=== PATIENT | male | born 1985 | race African-American/Black ===

== ENCOUNTER 2024-01-01 18:19 | Emergency (ER) | payer SELFPAY ==
[2024-01-01] VITALS (12 sets, daily range): BP systolic 160–189; BP diastolic 85–100; PULSE 86–98; RESP 13–18; TEMP 37.3; O2SAT 97–100; BMI 41.3
--- NOTE | 2024-01-01 18:37 | ED_ITS ---
HPI - Chest Pain General Chief Complaint: Chest Pain Stated Complaint: CHEST PAIN Time Seen by Provider: 01/01/24 18:27 History of Present Illness HPI narrative: 38-year-old male with reported history of sickle cell disease presents for sickle cell pain and chest pain. Patient states that he was in the area because his mother recently . He states that he is normally followed by Hematology at [facility] in [place]. He states that he usually takes hydroxyurea but since yesterday has had vomiting and has been unable to keep his medication down. Related Data Allergies Allergy/AdvReac Type Severity Reaction Status Date / Time metoclopramide [From Reglan] Allergy Hallucinati Verified 01/01/24 18:48 ng morphine Allergy Swelling Verified 01/01/24 18:48 of Lip/Tongue/Throat ondansetron [From Zofran] Allergy Swelling Verified 01/01/24 18:47 of Lip/Tongue/Throat Review of Systems Review of Systems Narrative: Negative except as noted above Patient History Social History Smoking Status: Never smoker Exam Initial Vital Signs Initial Vital Signs: Vital Signs Pulse Rate 98 H 01/01/24 18:31 Pulse Oximetry 100 01/01/24 18:31 Const: Awake, alert, no acute distress, obese Cardiac: regular rate, regular rhythm RESP: unlabored, clear bilaterally, no wheezing GI: Soft, nontender, nondistended, no rebound, no guarding MSK: Atraumatic, full range of motion, pulses equal Skin: Warm, Dry, intact, no rashes Neuro: AO x3, CN II-XII grossly intact, moves all extremities Course Orders Ordered: ED Orders 01/01/24 20:19 CBC Auto Diff [Complete Blood Count AUTO DIFF] Stat CMP [Comprehensive Metabolic Panel] Stat PT [Prothrombin Time INR] Stat RET [Reticulocyte Count, Percent] Stat Troponin & CK Cardiac Panel Stat Type and Screen Stat Discontinued Medications Diphenhydramine HCl (Diphenhydramine 50 Mg/Ml Vial) 50 mg IV NOW ONE Stop: 01/01/24 19:03 Last Admin: 01/01/24 20:22 Dose: 50 mg Documented By: SB Hydromorphone HCl (Hydromorphone 1 Mg Inj) 1 mg IV NOW ONE Stop: 01/01/24 18:36 Last Admin: 01/01/24 19:05 Dose: Not Given Documented By: SPF Hydromorphone HCl (Hydromorphone 1 Mg Inj) 2 mg IV NOW ONE Stop: 01/01/24 19:04 Last Admin: 01/01/24 20:22 Dose: 2 mg Documented By: PATT Hydromorphone HCl (Hydromorphone 1 Mg Inj) 2 mg IV NOW ONE Stop: 01/01/24 20:45 Last Admin: 01/01/24 20:46 Dose: 2 mg Documented By: PATT Hydromorphone HCl (Hydromorphone 1 Mg Inj) 2 mg IV NOW ONE Stop: 01/01/24 21:19 Last Admin: 01/01/24 21:24 Dose: 2 mg Documented By: PATT Acetaminophen (Ofirmev) 1,000 mg in 100 mls @ 400 mls/hr IV NOW ONE Stop: 01/01/24 18:49 Last Infusion: 01/01/24 20:50 Dose: Infused Documented By: Infusion: 01/01/24 20:23 Dose: 400 mls/hr Documented By: Infusion: 01/01/24 19:13 Dose: 0 mls/hr Documented By: Admin: 01/01/24 19:12 Dose: 400 mls/hr Documented By: SPF Sodium Chloride (Normal Saline 0.9%) 1,000 mls @ 1,000 mls/hr IV BOLUS ONE Stop: 01/01/24 19:36 Last Infusion: 01/01/24 21:17 Dose: Infused Documented By: Infusion: 01/01/24 20:23 Dose: 1,000 mls/hr Documented By: Infusion: 01/01/24 19:11 Dose: 0 mls/hr Documented By: Admin: 01/01/24 19:11 Dose: 1,000 mls/hr Documented By: SPF Ketorolac Tromethamine (Ketorolac 30 Mg/Ml Vial) 15 mg IV NOW ONE Stop: 01/01/24 18:36 Last Admin: 01/01/24 20:22 Dose: 15 mg Documented By: PATT Ondansetron HCl (Ondansetron 4 Mg/2 Ml Inj) 4 mg IV NOW ONE Stop: 01/01/24 18:36 Last Admin: 01/01/24 18:57 Dose: Not Given Documented By: RL Vital Signs Vital signs: Vital Signs - 8 hr 01/01/24 20:50 01/01/24 20:50 01/01/24 21:00 Pulse Rate 87 Respiratory Rate Blood Pressure 175/86 H 161/86 H Pulse Oximetry 97 Oxygen Delivery Method Room Air 01/01/24 21:00 01/01/24 21:30 01/01/24 21:30 Pulse Rate 89 92 H Respiratory Rate Blood Pressure 165/96 H Pulse Oximetry 99 Oxygen Delivery Method 01/01/24 22:00 01/01/24 22:30 01/01/24 22:30 Pulse Rate 95 H 95 H Respiratory Rate 16 15 Blood Pressure 184/100 H Pulse Oximetry 99 Oxygen Delivery Method MDM - Chest Pain Differential Diagnosis Differential diagnosis: Likely fracture of rib, pneumothorax and stable angina Lab Data 01/01/24 20:19 01/01/24 20:19 Labs: Lab Results 01/01/24 Range/Units 20:19 WBC 4.5 (4.5-11.0) X10^3/uL RBC 3.75 L (4.5-5.9) X10^6/uL Hgb 10.6 L (13.5-17.5) g/dL Hct 32.3 L (41-53) % MCV 86.1 (80-100) fL MCH 28.2 (26-34) PG MCHC 32.8 (30-36) % RDW 19.3 H (11.6-14.8) % Plt Count 196 (150-400) X10^3/uL Neut % (Auto) 65.4 (50-75) % Lymph % (Auto) 23.3 L (25-40) % [place] % (Auto) 9.5 (3-14) % Eos % (Auto) 1.0 L (2-4) % Baso % (Auto) 0.8 (0-2) % Neut # (Auto) 3000 (5567-0717) /uL Lymph # (Auto) 1100 (8204-4073) /uL [place] # (Auto) 400 (0-900) /uL Eos # (Auto) 0 (0-450) /uL Baso # (Auto) 0 (0-100) /uL Percent Retic 1.5 (0.9-2.6) % PT 12.2 (9.4-12.5) SECONDS INR 1.1 (0.9-1.3) Sodium 139 (137-145) mmol/L Potassium 3.8 (3.4-5.1) mmol/L Chloride 104 (98-107) mmol/L Carbon Dioxide 30 (22-32) mmol/L BUN 12 (9-20) mg/dL Creatinine 0.54 L (0.66-1.25) mg/dL Estimated GFR > 60 (>60) mL/min BUN/Creatinine Ratio 22.2 H (6-22) Glucose 157 H (70-100) mg/dL Calcium 9.2 (8.4-10.2) mg/dL Total Bilirubin 0.7 (0.2-1.3) mg/dL AST 61 H (17-59) IU/L ALT 50 H (<50) IU/L Alkaline Phosphatase 115 (38-126) U/L Total Creatine Kinase 898 H (55-170) U/L Troponin I < 0.012 (0.01-0.034) ng/mL Total Protein 7.9 (6.3-8.2) g/dL Albumin 3.8 (3.5-5.0) g/dL Globulin 4.1 (1.7-4.1) g/dL Albumin/Globulin Ratio 0.9 L (1.0-2.8) Blood Type A Positive Antibody Screen Negative Imaging Data Chest x-ray: Radiologist's Impression: PROCEDURE: XR CHEST 1V INDICATIONS: CHEST PAIN TECHNIQUE: One view of the chest was acquired. COMPARISON: None. FINDINGS: Surgical changes and devices: None. Lungs and pleura: Mild diffuse interstitial prominence with perihilar airway thickening. No focal consolidation. No pneumothorax or pleural effusion. Mediastinum: Mediastinal contours appear normal. Heart size is normal. Bones and chest wall: No suspicious bony lesions. Overlying soft tissues appear unremarkable. IMPRESSION: Mild diffuse interstitial prominence and perihilar airway thickening likely related to bronchitis either infectious or inflammatory in etiology. No focal consolidation. Otherwise, no acute cardiopulmonary abnormalities identified. Dictated by: Jesús Cuevas M.D. on 01/01/2024 at 18:03 Approved by: Jesús Cuevas M.D. on 01/01/2024 at 18:07 ECG Data Interpretation: Sinus tachycardia at 105 beats per minute. No ST T wave changes, normal axis, normal intervals MDM Narrative Medical decision making narrative: Patient reporting sickle cell crisis with pain and chest pain. EKG normal sinus rhythm. Reports stent placed at [facility] 1 year ago as well as longstanding history of sickle cell disease closely followed by their facility. Patient is stating that he normally gets 4 mg at a time of IV Dilaudid when he comes to the emergency department. He also states that his hematology team request that he be transfused if his hemoglobin is less than 10. Tylenol, Toradol, 2 mg of Dilaudid ordered for pain. Will add additional pain medications if needed, and will obtain records from [facility]. Patient is an extremely difficult IV access, he states that he had a port that was removed due to bacteremia and clotting off. Patient requested that a long- access IV be placed in his R IJ as this is what is typically done at [facility] when he has to have access. Chief Librarian Music Department so far unable to get records from [facility], records are pending. Laboratory work is reviewed. There was no elevation and reticulocyte count. Hemoglobin is 10.6. Troponin undetectable. Patient has requested additional pain medications. He received 3 total doses, however with normal laboratory results and still no records from [facility] will defer additional medications unless records from [facility] indicate othwerwise. Despite numerous efforts at obtaining medical records, there is no record of this patient at [facility]. I spoke directly with the hospital coordinator at [phone] who stated that she was on the phone with the patient earlier that day and he told her he was a [facility] patient and needed to have a doctor at [facility]. Coordinator told the patient that he would need to call to establish an appointment, but as of right now the patient is not and has not ever been in their system. Patient was advised of the phone calls made to [facility] as well as his normal reticulocyte count, hemoglobin, and troponin. Based on the inconsistencies in the patient's story as well as normal lab values and no record of establish care at a Heme-Onc Clinic I suspect the patient may be drug- seeking or malingering. He has received pain medications and does not appear to be in acute crisis at this time. Patient advised to follow up with Heme-Onc if he continues to experience his pain. Discharge Plan Departure Patient Disposition: Home Clinical Impression: Malingering, Sickle cell anemia with pain Instructions: Sickle Cell Disease Activity Restrictions/Additional Instructions: Follow with a heme-onc doctor Referrals: Fausto,MD Bismark [Primary Care Provider] - Stand Alone Forms: Patient Portal/API
[2024-01-01] MEDS: SODIUM CHLORIDE 0.9% 1,000 ML 1000 ML IV (19:11)
[2024-01-01] MEDS: ACETAMINOPHEN IV 1,000 MG/100 ML VIAL 400 MG IV (19:12)
--- NOTE | 2024-01-01 20:19 | PC.NURSE ---
MD Badillo placed IJ on right side.
[2024-01-01] MEDS: HYDROMORPHONE 1 MG INJ 2 MG IV ×3 (20:22→21:24)
[2024-01-01] MEDS: KETOROLAC 30 MG/ML VIAL 15 MG IV (20:22)
[2024-01-01] MEDS: diphenhydrAMINE 50 MG/ML VIAL IV (20:22)
[2024-01-01 20:37] LABS: Add Manual Diff / Slide Review NO; Basophils Absolute Auto 0 /uL (0-100); Basophils Percent Auto 0.8 % (0-2); Eosinophils Absolute Auto 0 /uL (0-450); Hematocrit 32.3 % (41-53); Hemoglobin 10.6 g/dL (13.5-17.5); Lymphocytes Absolute Auto 1100 /uL (1100-4500); Lymphocytes Percent Auto 23.3 % (25-40); Mean Corpuscular HGB Conc 32.8 % (30-36); Mean Corpuscular Hemoglobin 28.2 PG (26-34); Mean Corpuscular Volume 86.1 fL (80-100); Monocytes Absolute Auto 400 /uL (0-900); Monocytes Percent Auto 9.5 % (3-14); Neutrophils Absolute Auto 3000 /uL (1500-7000); Neutrophils Percent Auto 65.4 % (50-75); Platelet Count 196 X10^3/uL (150-400); Red Blood Cell Count 3.75 X10^6/uL (4.5-5.9); Red Cell Distribution Width 19.3 % (11.6-14.8); White Blood Cell Count 4.5 X10^3/uL (4.5-11.0)
[2024-01-01 20:40] LABS: INR 1.1 (0.9-1.3); Prothrombin Time 12.2 SECONDS (9.4-12.5)
[2024-01-01 20:45] LABS: Alanine Aminotransferase 50 IU/L (<50); Albumin 3.8 g/dL (3.5-5.0); Albumin Globulin Ratio 0.9 (1.0-2.8); Alkaline Phosphatase 115 U/L (38-126); Aspartate Aminotransferase 61 IU/L (17-59); BUN Creatinine Ratio 22.2 (6-22); Bilirubin Total 0.7 mg/dL (0.2-1.3); Blood Urea Nitrogen 12 mg/dL (9-20); Calcium 9.2 mg/dL (8.4-10.2); Carbon Dioxide 30 mmol/L (22-32); Chloride 104 mmol/L (98-107); Creatine Kinase 898 U/L (55-170); Estimated Glomerular Filt Rate > 60 mL/min (>60); Globulin 4.1 g/dL (1.7-4.1); Glucose 157 mg/dL (70-100); HEMOLYSIS < 15 (0-50); Potassium 3.8 mmol/L (3.4-5.1); Sodium 139 mmol/L (137-145); Total Protein 7.9 g/dL (6.3-8.2)
[2024-01-01 20:48] LABS: Reticulocyte Count, Percent 1.5 % (0.9-2.6)
[2024-01-01 20:56] LABS: Troponin I < 0.012 ng/mL (0.01-0.034)
--- NOTE | 2024-01-01 22:42 | PC.NURSE ---
DIET KITCHEN COOK note: Attempting to get records from [facility] per Dr. Badillo's request. At 1999 faxed over a request of medical records to [facility], waited for a bit, called [phone] to try get records and speak to his oncologist/ consult. They had no record of the patient. Asked patient if he had any nicknames or he may have used another name. Patient said he didn't. LEIDA Melo gave him our phone. Patient spoke to someone on the [place] end. Patient said they should call us back with information within 30 minutes. After 40 minutes no response. Brought phone in with me and asked him to call and hand the phone to us so we can speak to clinical staff. Patient called. Gave me a [phone] number, which is the cancer care line. The cancer care line said to get to an oncologist, or plumbing foreman webmethods consultant, to call [phone], and say you're an established patient at the cancer care clinic, and you need to talk to the oncologist webmethods consultant. I called that number, spoke to Diya at [phone]. Diya said it looks like there's no record of the patient, but if I sent a face sheet, she would do some digging. I thanked her. She called back and said she dug through and tried anything but couldn't find anything. Diya at the transfer said that [place] is far away from [place], where the patient's address is, and said it seemed unlikely he would get care at their center because of the distance. I spoke to patient again and he was speaking to his cousin to see if the cousin knew his medical record number. Cousin was out for the night and didn't. I suggested his sister as a resource because she's listed as his point of contact. He stated his sister didn't know anything about me. Patient called [phone] and tried to talk to the planimeter operator. Patient expressed frustration with this. The planimeter operator said to try back when the morning when the clinic opens. I asked about the distance between [place] and [place] and [place]. Patient said 'I've been going here for years. Patient said he gets his care from Dr. Cooney. Told LEIDA Melo and Dr. Badillo and my attempts to get records and a plumbing foreman.
== END 2024-01-01 23:15 | disposition home or self-care (01) ==
PROVIDERS: Emergency Provider Emergency Medicine
DX: D57.00 Hb-SS disease with crisis, unspecified (principal); R07.9 Chest pain, unspecified; Z76.5 Malingerer [conscious simulation]
CPT/HCPCS: 36415; 71045; 80053; 82550; 84484; 85025; 85045; 85610; 86850; 86900; 86901; 93005; 93010; 96365; 96375; 96376; 99284; J0136; J1170; J1200; J1885